=== PATIENT | male | born 1975 | race Caucasian/White ===

== ENCOUNTER 2018-09-18 07:07 | Day surgery (SDC) | payer BC ==
[2018-09-17 15:09] VITALS: BMI 31.4
[~2018-09-18] VITALS: Ht 180.3 cm; Wt 107.6 kg
[2018-09-18] VITALS (34 sets, daily range): BP systolic 87–129; BP diastolic 55–86; PULSE 62–76; RESP 16–20; Ht 180.3 cm; Wt 107.6 kg
[~2018-09-18 07:07] MED LIST: DIAZEPAM 5 MG TAB PO SCH; DIPHENHYDRAMINE 50 MG CAP PO SCH; FAMOTIDINE 20 MG TAB PO SCH; SOD CHLORIDE 0.45% 1,000 ML IV SCH
[2018-09-18] MEDS ORDERED: ASPI-817 PO (08:01)
[2018-09-18] MEDS ORDERED: CLOP75TA27 PO (08:03)
[2018-09-18] MEDS ORDERED: CARV25TA79 PO (08:04)
[2018-09-18] MEDS ORDERED: NITR0.4T32 SL (08:05)
[2018-09-18] MEDS ORDERED: MIDAZOLAM 1 MG/ML 2 ML INJ ONE (09:11)
[2018-09-18] MEDS ORDERED: FENTAnyl 50 MCG/ML VIAL ONE (09:11)
[2018-09-18] MEDS ORDERED: HEPARIN 1000 UNITS/ML 10 ML INJ ONE (09:11)
[2018-09-18] MEDS ORDERED: VERAPAMIL 5 MG INJ ONE (09:11)
[2018-09-18] MEDS ORDERED: NITROGLYCERIN (IC) 100 MCG/ML INJ ONE (09:11)
[2018-09-18] MEDS ORDERED: SOD CHLORIDE 0.9% 1,000 ML IV SCH (10:31)
--- NOTE | 2018-09-18 10:38 | SIPON ---
Date/Time of Note Date/Time of Note DATE: 09/18/18 TIME: 10:35 Operative Report Preoperative Diagnosis 1.chest pain 2.abnl mpi Postoperative Diagnosis 1.Patent LAD stents Operation/Procedure Performed 1.[facility] Surgeon see signature line instruction assistant principal 1.Danial Anesthesia: moderate sedation Estimated blood loss: minimal Transfusion Required none Specimen none Grafts/Implants none Complications none ZAINA HANSEN Sep 18, 2018 10:38
[2018-09-18] MEDS ORDERED: ACETAMINOPHEN 325 MG TAB PO PRN (11:00)
[2018-09-18] MEDS ORDERED: morphine 2 MG INJ IV PRN (11:00)
--- NOTE | 2018-09-18 12:54 | CARRPT ---
DATE OF PROCEDURE: 09/18/2018 TYPE OF PROCEDURES: 1. Left heart catheterization. 2. Coronary angiography. 3. Moderate conscious sedation. 4. Left ventriculogram. ATTENDING PHYSICIAN: Dr. Zaina Olson MD REFERRING PHYSICIAN: Self-referred. INDICATION: Chest pain refractory to medical therapy with positive stress test findings for inferior ischemia. TYPE OF ANESTHESIA: Conscious local. BRIEF HISTORY: Mr. 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 DESCRIPTION OF PROCEDURE: After informed consent was obtained, the patient was brought to the [facility] cardiac catheterization lab where his right radial wrist was prepped and drape d in sterile fashion. A 2% lidocaine was infiltrated into the right radial area in order to achieve adequate anesthesia. Using the modified Seldinger technique, the right radial artery was cannulated and a 6-Korean JL3.5 was used in attempt to cannulate the left coronary ostium and had to be passed i nto the ascending aorta over an angled stiff Glidewire after an Amplatz was unsuccessful and an d this exchanged for a JL3 which was used to cannulate the left main coronary ostium. After which co ntrast injection, multiple views of the left coronary arterial system were obtained. JL3.5 was remov ed over a guidewire and a JR4 was passed under fluoroscopy over angled stiff Glidewire. After which with contrast injection, multiple views were obtained. JR4 was removed and a 6-Korean pigtail was pa ssed in the aorta into LV. LVEDP was measured. A 20 mL of contrast were injected and pulled back ac ross the aortic valve to assess for significant gradient, which there was none and removed. Subseque ntly at this time, this completed the procedure. The patient's catheter was removed. The patient's sheath was removed. TR band was applied. There were no noted complications. FINDINGS: Coronary angiography: Left main is 4.5 mm, no significant focal stenoses. LAD proximally is a 3.4 mm vessel, no significant focal stenoses of this portion and in its mid portion just takeof f diagonal, there is a focal 20% to 30% stenosis and then thereafter. Remainder of the LAD is free o f significant focal stenosis and goes around the apex. There is a mid branching diagonal 2.5 mm vess el with no significant focal stenoses. The circumflex is 3 mm vessel and in its midportion has a 20% to 30% stenosis. The remainder of circumflex AV groove is free from significant focal stenoses. Th e proximal branch obtuse marginal is 2.5 mm, no significant focal stenoses. The patient's right elizabeth nary artery proximally is 3.5 mm vessel and its midportion has a 20% stenosis. The mid to distal gisselle nted zone which is widely patent with mild in-stent restenosis at 20% in the proximal portion of sten t. It is a dominant vessel and therefore gives off a 2 mm PDA with a mid body 30% stenosis and a 2 m m posterolateral branch with mild luminal irregularities of 10% to 20% in its proximal portion. Left ventriculogram revealed depressed left ventricular ejection fraction of approximately 40% with i nferior hypokinesis moderately. Left ventricular end diastolic pressure of 19 pre-LV gram and 21 pos t-LV gram, 1+ mitral regurgitation. No significant aortic stenosis by gradient. TOTAL FLUOROSCOPY TIME: 10.6 minutes. TOTAL CONTRAST: 35 mL. IMPRESSION: 1. Mild to moderate nonobstructive coronary artery disease. 2. Widely patent right coronary stented zone with very minimal in-stent restenosis. 3. Mildly depressed left ventricular systolic function with wall motion abnormalities as above. 4. Mildly elevated left heart filling pressures. 5. BEBETO 2 flow in the patient's LAD with no significant epicardial stenosis. RECOMMENDATIONS: In light of procedure findings at this time, we would: 1. Maximize medical management including addition of calcium channel kiersten in order to attempt to improve microvascular circulation given BEBETO 2 flow in LAD without epicardial stenosis. 2. Aggressive risk factor reduction. 3. The patient will be readmitted to same day surgery center for post-cath observation and continued management of symptoms with probable discharge later in the afternoon. Dictated By: ZAINA WORLEY/MARLYN Conf#: [id number] DID#: [id number]
--- NOTE | 2018-09-19 14:16 | RADRPT ---
Vent Rate: 65 bpm RR Interval: 0 msec MA Interval: 184 msec QRS Duration: 108 msec QT Interval: 404 msec QTC Interval: 420 msec P-R-T [place]: 29 - 15 - -18 degrees Normal sinus rhythm with sinus arrhythmia Inferior infarct , age undetermined Anterior infarct , age undetermined Abnormal ECG Electronically Signed By: Florencio Delarosa
== END 2018-09-18 15:56 | disposition home or self-care (01) ==
LOC: SDS 07:07
PROVIDERS: ATTEND Internal Medicine
DX: I25.10 Atherosclerotic heart disease of native coronary artery without angina pectoris (principal); I10 Essential (primary) hypertension; Z79.82 Long term (current) use of aspirin; Z87.891 Personal history of nicotine dependence; E78.5 Hyperlipidemia, unspecified; I25.2 Old myocardial infarction
CPT/HCPCS: 71045; 80048; 80061; 85025; 85610; 85730; 93005; 93458; C1887; J1644; J2250; J3010